=== PATIENT | female | born 1990 | race Caucasian/White ===

== ENCOUNTER 2019-12-02 18:18 | Emergency (ER) | payer MEDICARE, SELFPAY ==
[2019-12-02 18:35] VITALS: BP 120/88; PULSE 72; RESP 21; TEMP 36.9; O2SAT 98; BMI 28.7
--- NOTE | 2019-12-02 18:39 | ECG_ITS ---
APPROVED REPORT Exam: Resting ECG HR:78 bpm ECG Measurements Heart Rate 78 AXES AK 154 P 52 QRSd 92 QRS 29 QT 374 T 58 QTc 426 <Conclusion> Sinus rhythm with premature atrial complexes Otherwise normal ECG Electronically signed by : Henry Clark, 12/04/2019 16:33:48
[2019-12-02 18:40] VITALS: BP 154/109; PULSE 103; RESP 16; TEMP 36.6; O2SAT 98; BMI 28.7
[2019-12-02 18:43] VITALS: BP 120/88; BP 135/90; PULSE 72; PULSE 92
--- NOTE | 2019-12-02 18:47 | XR_ITS ---
PROCEDURE: XR CHEST PORTABLE CLINICAL HISTORY: syncope COMPARISON: No exams were available for comparison FINDINGS: The cardiomediastinal silhouette and pulmonary vascularity are within normal limits. The lungs are clear without infiltrates, suspicious nodules, or pleural effusions. No acute bony abnormalities. IMPRESSION: No acute findings. Dictated by: Andre Gregory MD 12/02/2019 20:11 Electronically signed by Andre Gregory MD in [place] 12/02/2019 20:11
--- NOTE | 2019-12-02 18:48 | CT_ITS ---
PROCEDURE: CT HEAD/BRAIN WO CON CLINICAL INDICATION: syncope Syncope, head injury with pain and swelling over the left temporal region COMPARISON: No exams were available for comparison TECHNIQUE: Axial images obtained. All CT scans at the facility use one or more dose reduction, viz: automated exposure control, ma/kV adjustment per patient size (including targeted exams where dose is matched to indication, i.e. head), or iterative reconstruction technique. FINDINGS: No midline shift, mass effect, intracranial hemorrhage, hydrocephalus, or extra-axial fluid collection is evident. The calvarium has an unremarkable appearance. No mastoid effusion. No sinus air-fluid level. There is some mild soft tissue swelling in the left frontal temporal area. IMPRESSION: No acute intracranial finding Dictated by: Andre Gregory MD 12/03/2019 06:22 Electronically signed by Andre Gregory MD in [place] 12/03/2019 06:22
[2019-12-02 19:09] LABS: Basophils # 0.1 K/mm3 (0-0.2); Basophils % 0.8 % (0.1-2.0); Eosinophils # 0.2 K/mm3 (0.0-0.4); Eosinophils % 3.1 % (0.1-12.0); Hematocrit 41.8 % (37.0-47.0); Hemoglobin 13.8 g/dL (12.2-16.2); Lymphocytes # 3.2 K/mm3 (0.7-4.5); Lymphocytes % 48.7 % (10-50); Mean Corpuscular HGB Conc 33.1 g/dL (31.8-35.4); Mean Corpuscular Hemoglobin 30.3 pg (27.0-31.2); Mean Corpuscular Volume 91.5 fl (81-99); Mean Platelet Volume 8.9 fl (7.4-10.4); Monocytes # 0.3 K/mm3 (0.1-1.0); Monocytes % 4.3 % (1.7-9.3); Neutrophils # 2.8 K/mm3 (1.8-7.8); Neutrophils % 43.2 % (37.0-80.0); Platelet Count 247 K/mm3 (142-424); Red Blood Count 4.57 M/mm3 (4.20-5.40); Red Cell Distribution Width 12.2 % (11.5-17.5); White Blood Count 6.5 K/mm3 (4.8-10.8)
[2019-12-02 19:19] LABS: Chloride 103 mmol/L (98-107); HCG Qualitative, Serum Negative (Negative); Potassium 3.5 mmoL/L (3.5-5.1); Sodium 138 mmol/L (136-145)
[2019-12-02 19:20] LABS: Alanine Aminotransferase 40 U/L (12-78); Albumin Level 4.1 g/dl (3.5-5.0); Alkaline Phosphatase 68 U/L (38-126); Aspartate Amino Transferase 42 U/L (14-36); Bilirubin,Indirect 0.4 mg/dL (0.0-0.9); Bilirubin,Total 0.4 mg/dl (0.2-1.3); Bilirubin,Unconjugated 0.4 mg/dL (0.0-1.1); Total Protein,Serum 7.1 g/dl (6.3-8.2)
[2019-12-02 19:22] LABS: Anion Gap 11.5 mEq/L (5-15); Blood Urea Nitrogen 16 mg/dl (7-17); Carbon Dioxide 27 mmol/L (22.0-30.0); Creatinine Clearance Estimated 140 mL/min (50-200); Estimated Glomerular Filt Rate 85 ml/min (>60); GFR (African American) 103 ML/MIN (>60)
[2019-12-02 19:23] LABS: Glucose 82 mg/dl (74-100)
[2019-12-02 19:39] LABS: Troponin I < 0.01 ng/ml (0.00-0.034)
--- NOTE | 2019-12-02 20:10 | HMH.EDSYNC ---
ED Disposition Clinical Impression: Vasovagal syncope, Laceration Disposition: Home, Self-Care Condition on Discharge: Good Instructions: DI for Syncope in Adults (Fainting), DI for Syncope in Children (Fainting) Additional Instructions: Have sutures removed 11 to 14 days from now. Please return to the ED to have them removed. If any redness or notice any swelling in the area please return to the emergency department for probable antibiotics for secondary infection. Referrals: Kunal Amaro MD [Primary Care Provider] - - Critical Care Critical Care Time: No Attestation: On 12/02/19, the high probability of a clinically significant, sudden or life threatening deterioration of the following system(s) required my full and direct attention, intervention and personal management. The time I documented below is in addition to time spent performing reported procedures but includes the following listed in this critical care notation. Medical Decision Making - Medical Records Medical records reviewed: Yes: I reviewed the patient's medical records. - Cristopher Inquiry Pt receiving controlled substance: No Vital Signs: 12/02/19 18:35 12/02/19 18:40 12/02/19 18:43 Temperature 98.4 F 98 F Temperature Source Oral Oral Pulse Rate [Left Brachial] 72 Pulse Rate [Left Radial] 103 H Pulse Rate [Orthostatic Sitting Left Brachial] 72 Pulse Rate [Orthostatic Standing Left Brachial] 92 H Respiratory Rate 21 16 Blood Pressure [Left Arm] 120/88 Blood Pressure [Orthostatic Sitting Left Arm] 120/88 Blood Pressure [Orthostatic Standing Left Arm] 135/90 Blood Pressure [Right Arm] 154/109 H Blood Pressure Mean [Left Arm] 98 Blood Pressure Mean [Right Arm] 124 Blood Pressure Source [Left Arm] Automatic Cuff Blood Pressure Position [Left Arm] Sitting Blood Pressure Position [Right Arm] Sitting 02 Sat by Pulse Oximetry 98 98 Oxygen Delivery Method Room Air Room Air - Lab Data Lab results reviewed: Yes: I reviewed the patient's lab results. Lab Results 12/02/19 18:50: WBC 6.5, RBC 4.57, Hgb 13.8, Hct 41.8, MCV 91.5, MCH 30.3, MCHC 33.1, RDW 12.2, Plt Count 247, MPV 8.9, Neut % (Auto) 43.2, Lymph % (Auto) 48.7, [place] % (Auto) 4.3, Eos % (Auto) 3.1, Baso % (Auto) 0.8, Neut # (Auto) 2.8, Lymph # (Auto) 3.2, [place] # (Auto) 0.3, Eos # (Auto) 0.2, Baso # (Auto) 0.1 12/02/19 18:50: Sodium 138, Potassium 3.5, Chloride 103, Carbon Dioxide 27, Anion Gap 11.5, BUN 16, Creatinine 0.80, Estimated Creat Clear 140, Estimated GFR 85, Est GFR ( Amer) 103, Glucose 82, Calcium 9.0, Troponin I < 0.01 12/02/19 18:50: Total Bilirubin 0.4, Direct Bilirubin 0.0, Conjugated Bilirubin 0.0, Indirect Bilirubin 0.4, Unconjugated Bilirubin 0.4, AST 42 H, ALT 40, Alkaline Phosphatase 68, Total Protein 7.1, Albumin 4.1 12/02/19 18:50: Serum HCG, Qual Negative Result diagrams: 12/02/19 18:50 12/02/19 18:50 Orders (Tests/Meds): ED MEDICATIONS Discontinued Medications Generic Name Dose Route Start Last Admin Trade Name Freq PRN Reason Stop Dose Admin Lidocaine/Epinephrine 5 ml 12/02/19 18:49 12/02/19 18:59 Lidocaine 2% W/Epi 1:100,000 20ml Vial IJ 12/02/19 18:50 5 cc ONCE ONE Administration Tetanus/Reduced Diphtheria/Acell Pertussis 0.5 ml 12/02/19 18:49 12/02/19 18:58 Adacel Tdap 0.5ml Syringe IM 12/02/19 18:50 0.5 ml .ONCE ONE Administration ORDERS Category Date Time Status CT head/brain wo con Stat Cat Scan 12/02/19 18:48 Taken XR chest portable Stat Exams 12/02/19 18:47 Taken Troponin I Q3H Lab 12/02/19 22:00 Ordered Troponin I Q3H Lab 12/03/19 01:00 Ordered - CT Data CT Scan: Head Time Received: 20:00 Preliminary Findings: Normal/NAD Syncope HPI - General Chief Complaint: Syncope Stated Complaint: ao 0429 1800 lac to chin Time Seen by Provider: 12/02/19 20:10 Mode of Arrival: Ambulatory Source of Information: Patient Limitations: No Limitations Description of S
[2019-12-02 20:16] VITALS: BP 130/83; PULSE 67; RESP 16; TEMP 36.7; O2SAT 100
== END 2019-12-02 20:23 | disposition home or self-care (01) ==
LOC: UTC 18:24 → ER 18:33
PROVIDERS: Emergency Provider Family Medicine; PCP Family Medicine
DX: R55 Syncope and collapse (principal); S01.81XA Laceration without foreign body of other part of head, initial encounter; W18.39XA Other fall on same level, initial encounter; Y92.019 Unspecified place in single-family (private) house as the place of occurrence of the external cause; K21.9 Gastro-esophageal reflux disease without esophagitis; Z90.09 Acquired absence of other part of head and neck
CPT/HCPCS: 12013; 70450; 71045; 80048; 80076; 84484; 84703; 85025; 90471; 90715; 93005; 99283

== ENCOUNTER → 2020-08-11 15:46 | Outpatient (CLI) | payer MEDICARE, SELFPAY ==
[2020-08-11 16:29] LABS: Basophils % 0.5 % (0.1-2.0); Eosinophils # 0.1 K/mm3 (0.0-0.4); Eosinophils % 1.4 % (0.1-12.0); Hemoglobin 13.7 g/dL (12.2-16.2); Lymphocytes # 1.7 K/mm3 (0.7-4.5); Lymphocytes % 31.4 % (10-50); Mean Corpuscular HGB Conc 31.8 g/dL (31.8-35.4); Mean Corpuscular Hemoglobin 29.4 pg (27.0-31.2); Mean Corpuscular Volume 92.4 fl (81-99); Mean Platelet Volume 8.8 fl (7.4-10.4); Monocytes # 0.3 K/mm3 (0.1-1.0); Neutrophils # 3.3 K/mm3 (1.8-7.8); Neutrophils % 61.7 % (37.0-80.0); Platelet Count 201 K/mm3 (142-424); Red Blood Count 4.66 M/mm3 (4.20-5.40); Red Cell Distribution Width 13.8 % (11.5-17.5); White Blood Count 5.3 K/mm3 (4.8-10.8)
[2020-08-11 16:50] LABS: Strep Scrn Group A (Rapid) Negative (Negative)
== END ==
PROVIDERS: PCP Physician Assistant; Visit Provider Physician Assistant
DX: Z20.828 Contact with and (suspected) exposure to other viral communicable diseases (principal); U07.1 COVID-19
CPT/HCPCS: 85025; 87275; 87276; 87430; U0003

== ENCOUNTER 2021-04-06 16:43 | Emergency (ER) | payer MEDICARE, SELFPAY ==
[2021-04-06 18:16] VITALS: BP 137/70; PULSE 63; RESP 14; TEMP 36.8; O2SAT 100; BMI 33.0
[2021-04-06 18:26] VITALS: BP 137/70; PULSE 63; RESP 14; TEMP 36.8
--- NOTE | 2021-04-06 18:42 | HMH.EDUTC ---
[facility] Disposition Clinical Impression: Viral syndrome Pharyngitis Qualifiers: Pharyngitis/tonsillitis etiology: unspecified etiology Qualified Code(s): J02.9 - Acute pharyngitis, unspecified Disposition: Home, Self-Care Condition on Discharge: Good Instructions: DI for Viral Syndrome, Preventing the Spread of Coronavirus Discharge Instructions Additional Instructions: Drink plenty of fluids. Take tylenol or ibuprofen for pain or fever. Take the medications as directed. Follow up with your regular doctor. GO TO THE ER FOR ANY WORSENING SYMPTOMS Prescriptions: Brompheniramine/Pseudoephed/Dm [Bromfed Dm Cough Syrup] 5 ml PO Q6HP PRN #240 ml PRN Reason: Cough Transmission Status: Received by [facility] Ondansetron [Zofran 4mg ODT] 4 mg PO Q8HP PRN #12 tab PRN Reason: Nausea Transmission Status: Received by [facility] Azithromycin [Z-David 250mg Tab*] 250 mg PO UD DOSE PK #6 tab Transmission Status: Received by [facility] Referrals: Lexi Ennis PA [Primary Care Provider] - Forms: Work/School Release Time of Disposition: 18:59 Medical Decision Making - Medical Records Medical records reviewed: No: I reviewed the patient's medical records. - Cristopher Inquiry Pt receiving controlled substance: No Vital Signs: 04/06/21 18:16 04/06/21 18:26 Temperature 98.3 F 98.3 F Temperature Source Oral Pulse Rate 63 Pulse Rate [Left] 63 Respiratory Rate 14 14 Blood Pressure 137/70 Blood Pressure [Right Arm] 137/70 Blood Pressure Mean [Right Arm] 92 02 Sat by Pulse Oximetry 100 - Lab Data Lab results reviewed: Yes: I reviewed the patient's lab results. Lab Results 04/06/21 17:47: Chlamy pneumoniae PCR Not detected, Adenovirus (PCR) Not detected, B. pertussis DNA (PCR) Not detected, Coronavirus OC43 (PCR) Not detected, Coronavirus HKU1 (PCR) Not detected, Coronavirus 229E (PCR) Not detected, SARS-CoV-2 (PCR) Not detected, Coronavirus NL63 (PCR) Not detected, Human Metapneumovir PCR Not detected, Influenza A (H1) PCR Not detected, Influ A (H1N1/09) PCR Not detected, Influenza A (H3) PCR Not detected, Influenza Type A (PCR) Not detected, Influenza Type B (PCR) Not detected, M. pneumoniae (PCR) Not detected, Parainfluenza 1 (PCR) Not detected, Parainfluenza 2 (PCR) Not detected, Parainfluenza 3 (PCR) Not detected, Parainfluenza 4 (PCR) Not detected, RSV (PCR) Not detected, Entero/Rhino (PCR) Not detected 04/06/21 18:53: Strep Scn Rapid Clinic Negative Orders (Tests/Meds): ORDERS Category Date Time Status Strep Screen Confirmation Stat Micro 04/06/21 18:53 Received [facility] HPI - General Stated complaint: sore throat,cough,BAEZ,weak,runny nose Time Seen by Provider: 04/06/21 18:42 Mode of Arrival: Ambulatory Source of Information: Patient Limitations: No Limitations Description of Symptoms (Recalled from Triage Doc. by RN): pt c/o BAEZ, ears ache, sore throat, nasal drainage, and body aches. pt was covid NEG. as of . HEENT Symptoms (Recalled from RN notes): Yes (BAEZ, ears ache, nasal drainage and sore throat) Resp Symptoms (Recalled from RN notes): No Skin Symptoms (Recalled from RN notes): No MS Symptoms (Recalled from RN notes): No Functional Status (Recalled from RN notes): body aches - History of Present Illness Provider Complaint: She reports that she has felt bad for the past 4 days. She had a negative covid test yesterday. She has had a sore troat, sinus congestion her gi upset also. - Related Data Home Medications Medication Instructions Recorded Confirmed Fluoxetine HCl 10 mg PO DAILY 12/02/19 12/02/19 Omeprazole [Omeprazole 20mg 20 mg PO DAILY 12/02/19 12/02/19 Capsule] Previous Rx's Medication Instructions Recorded Azithromycin [Z-David 250mg Tab*] 250 mg PO UD DOSE PK #6 tab 04/06/21 Brompheniramine/Pseudoephed/Dm 5 ml PO Q6HP PRN #240 ml 04/06/21 [Bromfed Dm Cough Syrup] Ondansetron [Zofran 4mg ODT] 4 mg
[2021-04-06 18:54] LABS: UTC Strep Screen (Rapid) Negative (Negative)
[2021-04-06 18:57] LABS: Adenovirus,PCR Not Detected (NotDetected); Bordetella Pertussis Not Detected (NotDetected); Chlamydophila Pneumoniae, PCR Not Detected (NotDetected); Coronavirus 19, PCR Not Detected (NotDetected); Coronavirus 229E Not Detected (NotDetected); Coronavirus NL63 Not Detected (NotDetected); Coronavirus OC43 Not Detected (NotDetected); Coronovirus HKU1,PCR Not Detected (NotDetected); Human Metapneumovirus Not Detected (NotDetected); Influenza A, PCR Not Detected (NotDetected); Influenza AH1, 2009 Not Detected (NotDetected); Influenza AH1, PCR Not Detected (NotDetected); Influenza AH3,PCR Not Detected (NotDetected); Influenza B, PCR Not Detected (NotDetected); Mycoplasma Pneumoniae, PCR Not Detected (NotDetected); Parainfluenza 1, PCR Not Detected (NotDetected); Parainfluenza 2, PCR Not Detected (NotDetected); Parainfluenza 3, PCR Not Detected (NotDetected); Parainfluenza 4, PCR Not Detected (NotDetected); Respiratory Syncytial Virus Not Detected (NotDetected); Rhinovirus/Enterovirus Not Detected (NotDetected)
== END 2021-04-06 19:12 | disposition home or self-care (01) ==
PROVIDERS: Emergency Provider Nurse Practitioner Family; PCP Physician Assistant
DX: B34.9 Viral infection, unspecified (principal); J02.9 Acute pharyngitis, unspecified; F33.1 Major depressive disorder, recurrent, moderate; Z20.822 Contact with and (suspected) exposure to COVID-19
CPT/HCPCS: G0463; 87581; 87633; 87798; 87880; 99203

== ENCOUNTER → 2021-08-29 16:23 | Outpatient (CLI) | payer MEDICARE, SELFPAY | PROVIDERS: PCP Family Medicine; Visit Provider Nurse Practitioner | DX: U07.1 COVID-19 (principal) | CPT/HCPCS: C9803; U0003; U0005 ==

== ENCOUNTER → 2021-09-18 14:44 | Outpatient (CLI) | payer MEDICARE, SELFPAY | PROVIDERS: PCP Family Medicine; Visit Provider Family Medicine | DX: E55.9 Vitamin D deficiency, unspecified (principal); F41.8 Other specified anxiety disorders; E28.2 Polycystic ovarian syndrome; R53.83 Other fatigue; Z90.710 Acquired absence of both cervix and uterus ==

== ENCOUNTER → 2021-09-25 12:05 | Outpatient (CLI) | payer MEDICARE, SELFPAY ==
[2021-09-25 13:11] LABS: Basophils % 0.5 % (0.1-2.0); Eosinophils # 0.1 K/mm3 (0.0-0.4); Eosinophils % 1.2 % (0.1-12.0); Hematocrit 41.9 % (37.0-47.0); Hemoglobin 13.9 g/dL (12.2-16.2); Lymphocytes # 1.4 K/mm3 (0.7-4.5); Lymphocytes % 14.8 % (10-50); Mean Corpuscular HGB Conc 33.1 g/dL (31.8-35.4); Mean Corpuscular Volume 90.5 fl (81-99); Mean Platelet Volume 8.9 fl (7.4-10.4); Monocytes # 0.4 K/mm3 (0.1-1.0); Monocytes % 4.1 % (1.7-9.3); Neutrophils # 7.6 K/mm3 (1.8-7.8); Neutrophils % 79.4 % (37.0-80.0); Platelet Count 232 K/mm3 (142-424); Red Blood Count 4.63 M/mm3 (4.20-5.40); Red Cell Distribution Width 12.6 % (11.5-17.5); White Blood Count 9.5 K/mm3 (4.8-10.8)
[2021-09-25 13:25] LABS: Hemoglobin A1C 4.9 % (4.0-6.0)
[2021-09-25 13:52] LABS: Alanine Aminotransferase 20 U/L (12-78); Albumin Level 3.8 g/dl (3.5-5.0); Albumin/Globulin Ratio 1.5 (1.1-1.8); Alkaline Phosphatase 67 U/L (38-126); Anion Gap 9.8 mEq/L (5-15); Aspartate Amino Transferase 24 U/L (14-36); Bilirubin,Total 0.4 mg/dl (0.2-1.3); Blood Urea Nitrogen 11 mg/dl (7-17); Calcium 8.7 mg/dl (8.4-10.2); Carbon Dioxide 29 mmol/L (22.0-30.0); Chloride 105 mmol/L (98-107); Cholesterol 201 mg/dl (140-200); Estimated Glomerular Filt Rate 98 ml/min (>60); GFR (African American) 118 ML/MIN (>60); Globulin 2.5 g/dL (1.3-3.2); Glucose 84 mg/dl (74-100); HDL Cholesterol 67 mg/dl (40-60); Iron 70 ug/dL (37-170); Potassium 4.8 mmoL/L (3.5-5.1); Sodium 139 mmol/L (136-145); Total Protein,Serum 6.3 g/dl (6.3-8.2); Triglycerides 94 mg/dl (30-150); VLDL Cholesterol 19 mg/dL (0-40)
[2021-09-25 14:04] LABS: Direct LDL Cholesterol 109.59 mg/dL (100-129)
[2021-09-25 14:10] LABS: 25-OH Vitamin D, Total 81.6 ng/mL (30-100)
[2021-09-25 14:23] LABS: Thyroid Stimulating Hormone 0.41 uIU/mL (0.465-4.68)
[2021-09-25 14:43] LABS: Vitamin B12 > 1000 pg/mL (239-931)
[2021-09-26 10:12] LABS: FSH 5.4 mIU/mL (.); LH 5.3 mIU/mL (.)
== END ==
PROVIDERS: Visit Provider Family Medicine
DX: F41.8 Other specified anxiety disorders (principal); E28.2 Polycystic ovarian syndrome; E55.9 Vitamin D deficiency, unspecified; R53.83 Other fatigue; Z90.710 Acquired absence of both cervix and uterus
CPT/HCPCS: 36415; 80053; 80061; 82306; 82607; 83001; 83002; 83036; 83540; 84443; 85025

== ENCOUNTER 2022-03-15 17:00 | Emergency (ER) | payer MEDICARE, BC, SELFPAY ==
[2022-03-15 17:40] VITALS: BP 136/80; PULSE 73; RESP 18; TEMP 37.5; O2SAT 97; BMI 34.2
--- NOTE | 2022-03-15 18:04 | HMH.EDUTC ---
[facility] [place] Clinical Impression: Otitis media Qualifiers: Otitis media type: unspecified Laterality: left Qualified Code(s): H66.92 - Otitis media, unspecified, left ear Eustachian tube dysfunction Qualifiers: Laterality: unspecified laterality Qualified Code(s): H69.80 - Other specified disorders of Eustachian tube, unspecified ear Disposition: Home, Self-Care Condition on Discharge: Good Instructions: Middle Ear Infection, DI for Eustachian Tube Dysfunction-Adult Additional Instructions: Take medication as prescribed Over the counter Sudafed can be got from the pharmacy take as according to directions Return if needed Straight to ER if any life threatening symptoms Follow up with your Family Doctor if no improvement Prescriptions: Cefdinir [Omnicef 300mg Capsule] 300 mg PO BID #20 cap Transmission Status: Received by [facility] Pseudoephedrine HCl [Sudafed 12 Hour 120mg Tab] 1 tab PO BID PRN #20 tab PRN Reason: Congestion Transmission Status: Received by [facility] Referrals: Gabriel Medrano MD [Primary Care Provider] - As needed Time of Disposition: 18:19 Medical Decision Making - Cristopher Inquiry Pt receiving controlled substance: No Cristopher was queried for this patient: No Vital Signs: 03/15/22 17:40 03/15/22 18:20 Temperature 99.5 F 99.5 F Temperature Source Oral Pulse Rate 73 Pulse Rate [Left Brachial] 73 Respiratory Rate 18 18 Blood Pressure 136/80 Blood Pressure [Left Arm] 136/80 Blood Pressure Mean [Left Arm] 98 Blood Pressure Source [Left Arm] Automatic Cuff Blood Pressure Position [Left Arm] Sitting 02 Sat by Pulse Oximetry 97 Oxygen Delivery Method Room Air Orders (Tests/Meds): ED MEDICATIONS Discontinued Medications Generic Name Dose Route Start Last Admin Trade Name Freq PRN Reason Stop Dose Admin Methylprednisolone Sodium Succinate 125 mg 03/15/22 18:07 03/15/22 18:20 Methylprednisolone Sod Succ 125mg Vial IM 03/15/22 18:08 125 mg ONCE ONE Administration [facility] [place] HPI - General Stated complaint: fluid in ears Time Seen by Provider: 03/15/22 18:04 Mode of Arrival: Ambulatory Source of Information: Patient Limitations: No Limitations Description of Symptoms (Recalled from Triage Doc. by RN): PATIENT C/O BILATERAL EAR PAIN AND DRAINAGE X 3 WEEKS. SHE ALSO REPORTS SHE HAS BEEN OFF-BALANCE AND MUFFLED HEARING HEENT Symptoms (Recalled from RN notes): Yes Resp Symptoms (Recalled from RN notes): No Skin Symptoms (Recalled from RN notes): No MS Symptoms (Recalled from RN notes): No Functional Status (Recalled from RN notes): WNL - History of Present Illness Provider Complaint: Patient states that she has been having pain and pressure like feeling in her ears States that they have felt full like they area full of fluid and makes her feel off balance and pain is worse today - Related Data Home Medications Medication Instructions Recorded Confirmed Omeprazole [Omeprazole 20mg 20 mg PO DAILY 12/02/19 07/06/21 Capsule] buspirone 5 mg tablet 5 mg PO tab 06/25/21 07/06/21 sertraline 50 mg tablet 50 mg PO tab 06/25/21 07/06/21 temazepam 15 mg capsule 15 mg PO cap 06/25/21 07/06/21 Previous Rx's Medication Instructions Recorded Cefdinir [Omnicef 300mg Capsule] 300 mg PO BID #20 cap 03/15/22 Pseudoephedrine HCl [Sudafed 12 1 tab PO BID PRN #20 tab 03/15/22 Hour 120mg Tab] Allergies Allergy/AdvReac Type Severity Reaction Status Date / Time clavulanic acid Allergy Unknown Verified 07/06/21 18:07 [From Augmentin] morphine [MORPHINE] Allergy Unknown Verified 07/06/21 18:07 - Worker's Comp Is this a Worker's Comp case?: No [facility] History - Hepatitis A Screen Attestation statement:: This patient has been screened for Hepatitis A risk factors. I have reviewed the patient's past medical history: Yes Medical History: Reports:: Anxiety, Depression, Gastroesophageal Reflux Disease(GERD) [place]
[2022-03-15 18:20] VITALS: BP 136/80; PULSE 73; RESP 18; TEMP 37.5; O2SAT 97
== END 2022-03-15 18:35 | disposition home or self-care (01) ==
PROVIDERS: Emergency Provider Nurse Practitioner; PCP Family Medicine
DX: H66.92 Otitis media, unspecified, left ear (principal); H69.80 Other specified disorders of Eustachian tube, unspecified ear
CPT/HCPCS: 96372; 99212; G0463

== ENCOUNTER 2022-03-31 10:12 | Emergency (ER) | payer MEDICARE, BC, SELFPAY ==
[2022-03-31 10:13] VITALS: BP 142/95; PULSE 92; RESP 16; TEMP 36.8; O2SAT 98; BMI 33.2
--- NOTE | 2022-03-31 10:24 | XR_ITS ---
PROCEDURE INFORMATION: Exam: XR Sacrum and Coccyx, 2 or More Views Exam date and time: 03/31/2022 10:58 AM Age: 31 years old Clinical indication: Injury or trauma; Fall; Blunt trauma (contusions or hematomas); Additional info: Trauma/pain TECHNIQUE: Imaging protocol: XR of the sacrum and coccyx, 2 or more views. COMPARISON: ABDPELW CT ABD PELVIS W/ CONTRAST 04/18/2017 8:23 PM FINDINGS: Bones/joints: Subtle cortical regularity involving the distal sacrum just proximal to the sacrococcygeal junction. Findings suspicious but not definitive for possible fracture. Soft tissues: Normal. IMPRESSION: 1. Subtle cortical regularity involving the distal sacrum in the region of the sacrococcygeal junction. Findings suspicious but not definitive for possible fracture. 2. Consider follow-up if appropriate with magnetic resonance imaging or computerized tomography.
--- NOTE | 2022-03-31 10:24 | XR_ITS ---
PROCEDURE INFORMATION: Exam: XR Left Shoulder Exam date and time: 03/31/2022 10:53 AM Age: 31 years old Clinical indication: Injury or trauma; Fall; Blunt trauma (contusions or hematomas); Shoulder; Left; Additional info: Trauma/pain TECHNIQUE: Imaging protocol: Radiologic exam of the Left shoulder. Views: 2 or more views. COMPARISON: CR XR RIBS LT MIN 3V W CXR1V 03/31/2022 10:50 AM FINDINGS: Bones/joints: Normal. Soft tissues: Normal. IMPRESSION: No acute findings.
--- NOTE | 2022-03-31 10:24 | XR_ITS ---
PROCEDURE INFORMATION: Exam: XR Left Ribs with PA Chest Exam date and time: 03/31/2022 10:50 AM Age: 31 years old Clinical indication: Injury or trauma; Fall; Rib area, left side; Blunt trauma; Additional info: Trauma/pain TECHNIQUE: Imaging protocol: Radiologic exam of the Left ribs with PA chest. Views: 3 views COMPARISON: CR XR CHEST PORTABLE 12/02/2019 7:28 PM FINDINGS: Lungs: Unremarkable. No consolidation. Pleural spaces: Unremarkable. No pleural effusion. No pneumothorax. Heart/Mediastinum: Unremarkable. No cardiomegaly. Bones/joints: Unremarkable. IMPRESSION: No acute findings.
--- NOTE | 2022-03-31 10:25 | HMH.EDGENADL ---
Discharge Plan Disposition Patient Disposition: Home, Self-Care Chief Complaint: PAIN Prescriptions Prescriptions: New hydrocodone-acetaminophen 7.5-325 mg tablet 1 tab PO TID PRN (Reason: pain) Qty: 12 0RF No Action buspirone 5 mg tablet 5 mg PO temazepam 15 mg capsule 15 mg PO sertraline 50 mg tablet 50 mg PO omeprazole 20 MG capsule,delayed release(DR/EC) 20 mg PO DAILY pseudoephedrine HCl 120 MG tablet extended release 1 tab PO BID PRN (Reason: Congestion) Qty: 20 0RF cefdinir 300 MG capsule 300 mg PO BID Qty: 20 0RF Referrals Follow up/Referrals: Lexi Ennis PA [Primary Care Provider] - See instructions Activity Restrictions/Add. Instructions Additional Instructions/Restrictions: follow up PCP as needed Clinical Impressions Clinical Impression: Fracture, sacrum/coccyx Instructions Patient Instructions: DI for Coccyx Fracture Discharge ED Provider: Levi Waldron General Adult HPI General Chief complaint: PAIN Stated complaint: ao 03/31 fall, upper back and left shoulder pain Time Seen by Provider: 03/31/22 10:29 Mode of Arrival: Ambulatory Source of Information: Patient Limitations: No Limitations Description of Symptoms (Recalled from ER Triage Doc. by RN): to ed per pvt car pt states slipped on wet grass fell landing on buttocks and caught self with lt arm c/o coccyx pain, lt scapula, and lt shoulder pain. 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 Onset (ago): minute(s) Location: back Severity: moderate Quality: aching Consistency: constant Relieving factors: immobilization Exacerbating factors: movement Associated symptoms: denies other symptoms Treatments prior to arrival: none Related Data Home Medications Medication Instructions Recorded Confirmed omeprazole 20 mg capsule,delayed 20 mg PO DAILY GERD 12/02/19 07/06/21 release buspirone 5 mg tablet 5 mg PO 06/25/21 07/06/21 sertraline 50 mg tablet 50 mg PO 06/25/21 07/06/21 temazepam 15 mg capsule 15 mg PO 06/25/21 07/06/21 Previous Rx's Medication Instructions Recorded cefdinir 300 mg capsule 300 mg PO BID #20 caps 03/15/22 pseudoephedrine HCl 120 mg 1 tab PO BID PRN Congestion #20 08/11/22 tablet,extended release tabs hydrocodone 7.5 mg-acetaminophen 1 tab PO TID PRN pain #12 tabs 03/31/22 325 mg tablet Allergies Allergy/AdvReac Type Severity Reaction Status Date / Time clavulanic acid Allergy Unknown Verified 07/06/21 18:07 [From Augmentin] morphine [MORPHINE] Allergy Unknown Verified 07/06/21 18:07 PFSH PFS Social History Smoking Status: Never smoker alcohol intake: never substance use type: denies use current occupational status: other household members: family housing: house ROS Obtained: Yes All systems reviewed & no additional complaints except as documented Physical Exam General General appearance: alert and in no apparent distress Head Head exam: atraumatic and normocephalic Eye Eye exam: Present normal appearance, PERRL and EOMI Chest Chest inspection: Present normal inspection and symmetric chest wall rise; Absent tenderness Respiratory Respiratory exam: Present normal lung sounds bilaterally; Absent respiratory distress or wheezes Cardiovascular Cardiovascular exam: Present regular rate and normal rhythm; Absent tachycardia Abdominal Exam Abdominal exam: Present soft; Absent distention, tenderness or guarding Extremities Exam Extremities exam: Present other (left anterior sholder ttp, otherwise nml ) Back Exam Back exam: Present other (ttp sacrum and left lateral ribs, c/t/l non tender) Neurological Exam Neurological exam: Present alert, oriented X3, CN II-XII intact and normal gait Psychiatric Psychiatric exam: Present normal affect and normal mood Skin Skin exam: Present warm, intact
[2022-03-31 11:16] VITALS: BP 118/67; PULSE 78; RESP 17; O2SAT 98
[2022-03-31 12:08] VITALS: BP 135/74; PULSE 74; RESP 16; TEMP 37; O2SAT 98
== END 2022-03-31 12:09 | disposition home or self-care (01) ==
PROVIDERS: Emergency Provider Emergency Medicine; PCP Physician Assistant
DX: S32.10XA Unspecified fracture of sacrum, initial encounter for closed fracture (principal); W01.0XXA Fall on same level from slipping, tripping and stumbling without subsequent striking against object, initial encounter; Y92.096 Garden or yard of other non-institutional residence as the place of occurrence of the external cause; Z79.899 Other long term (current) drug therapy; Z88.1 Allergy status to other antibiotic agents; Z88.5 Allergy status to narcotic agent
CPT/HCPCS: 71101; 72220; 73030; 96372; 99284

== ENCOUNTER → 2022-04-27 13:54 | Outpatient (CLI) | payer MEDICARE, BC, SELFPAY ==
--- NOTE | 2022-04-27 14:09 | XR_ITS ---
FINAL REPORT CLINICAL HISTORY: MID BACK PAIN..fall 2 weeks ago FINDINGS: THORACIC SPINE Three views were obtained. There is no acute fracture. There is no malalignment. There is thoracic scoliosis convex to the left at about 11 degrees. The disc spaces are preserved. There is no soft tissue abnormality. IMPRESSION: No acute bony abnormality. Reviewed, Interpreted and Dictated by Salo Hutton MD Transcribed by Marleen Tamez Authenticated and [facility]
== END ==
LOC: RAD 14:01
PROVIDERS: PCP Physician Assistant; Visit Provider Physician Assistant
DX: M54.6 Pain in thoracic spine (principal)
CPT/HCPCS: 72072

== ENCOUNTER → 2022-05-11 11:06 | Outpatient (CLI) | payer BC, MEDICARE, SELFPAY ==
--- NOTE | 2022-05-11 11:20 | MR_ITS ---
FINAL REPORT CLINICAL HISTORY: MID BACK PAIN FALL Mar PAIN ON LEFT SIDED MID BACK BURNING, TINGLING,NUMBNESS DOWN LEFT ARM FINDINGS: Multiplanar MR imaging of the thoracic spine was performed without contrast. On the sagittal T2-weighted images, mild disc degeneration is seen at several levels. There is a subacute mild compression fracture of T7. There is 30% loss of height anteriorly. The vertebral alignment is normal. The thoracic spinal cord has an unremarkable appearance without evidence of mass, edema or syrinx. There is no evidence of significant canal stenosis or cord compression. On the axial images, no focal soft disc protrusion is identified. There is no evidence of significant canal stenosis or cord compression. No paraspinous soft tissue abnormality is identified. IMPRESSION: Subacute mild compression fracture of T7. Reviewed, Interpreted and Dictated by Souleymane Sánchez III, MD Transcribed by Chad Gregg Authenticated and [facility]
== END ==
PROVIDERS: PCP Physician Assistant; Visit Provider Physician Assistant
DX: M54.6 Pain in thoracic spine (principal)
CPT/HCPCS: 72146

== ENCOUNTER → 2022-06-15 08:50 | Outpatient (CLI) | payer BC, MEDICARE, SELFPAY ==
--- NOTE | 2022-06-15 09:01 | XR_ITS ---
FINAL REPORT TECHNIQUE: Bone densitometry calculations of the lumbar spine and left hip were obtained. CLINICAL HISTORY: . closed wedge fx T7 FINDINGS: Using L1-4, the bone mineral density of the spine is 0.916 g/cm2, corresponding to T-score of -1.2. Using the left hip, the bone mineral density of the femoral neck is the 0.955 g/cm2, corresponding to a T-score of the 0.1. Using the right hip, the bone mineral density of the femoral neck is 1.002 g/cm2, corresponding to a T-score of 0.5. NOTE: T-score: Standard deviation compared with peak bone mass of young adult mean. *Following the recommendations of the International Society of Bone densitometry, classification of hip BMD is based on the lower of two T-scores; total hip or femoral neck. IMPRESSION: Normal bone mineral density of the right and left hips. Diminished bone mineral density of the spine consistent with osteopenia. FRAX data reveals major osteoporotic fracture of 3.9% and hip fracture of less than 0.1%. Reviewed, Interpreted and Dictated by Salo Hutton MD Transcribed by Roxanne Daly Authenticated and [facility]
== END ==
PROVIDERS: PCP Physician Assistant; Visit Provider Neurological Surgery
DX: S22.060A Wedge compression fracture of T7-T8 vertebra, initial encounter for closed fracture (principal)
CPT/HCPCS: 77080

== ENCOUNTER 2022-07-17 18:34 | Emergency (ER) | payer BC, MEDICARE, SELFPAY ==
[2022-07-17 20:03] VITALS: BP 146/83; PULSE 77; RESP 16; TEMP 36.4; O2SAT 99; BMI 33.2
[2022-07-17 20:11] LABS: UTC Strep Screen (Rapid) Negative (Negative)
--- NOTE | 2022-07-17 20:18 | EXP.UTC ---
Discharge Plan Disposition Patient Disposition: Home, Self-Care Condition: Good Prescriptions Prescriptions: New azithromycin [azithromycin] 250 mg tablet 250 mg PO DIRECTED Qty: 4 0RF Rx Instructions: one (1) tablet day #2 thru #5 first dose given in [facility] No Action temazepam 15 mg capsule 15 mg PO vilazodone [Viibryd] 20 mg tablet 20 mg PO DAILY 30 Days Qty: 30 1RF doxepin 50 mg capsule See Rx Instructions PO QHS Qty: 60 1RF Rx Instructions: take 1-2 at bedtime orally every day at bedtime; omeprazole 20 MG capsule,delayed release(DR/EC) 20 mg PO DAILY Referrals Follow up/Referrals: Lexi Ennis PA [Primary Care Provider] - See instructions Activity Restrictions/Add. Instructions Additional Instructions/Restrictions: Start antibiotics today be sure to take it as ordered with the full length of time although you should start feeling better in 24-48 hours. Change toothbrush and toothpaste 24-48 hours after starting antibiotics Tylenol or Motrin as needed for fever or pain Encourage fluids, water, Gatorade, Powerade, try cold fluids, popsicles, ice cream will make it feel better You are contagious for 24 hours. Avoid kissing anyone, no eating or drinking after anyone. You are contagious. Follow-up the ER for new or worsening symptoms or no noticeable improvement over the next 24-48 hours. Follow-up with PCP this week. Clinical Impressions Clinical Impression: Strep sore throat Instructions Patient Instructions: DI for Strep Throat Discharge ED Provider: Donato Mckinnon [facility] [place] HPI General Stated complaint: Sore throat,Cough Mode of Arrival: Ambulatory Source of Information: Patient Limitations: No Limitations Time Seen by Provider: 07/17/22 20:18 Description of Symptoms (Recalled from Triage Doc. by RN): pt comes in with c/o sore throat, headache. symptoms have gotten worse thru out day HEENT Symptoms (Recalled from RN notes): Yes Resp Symptoms (Recalled from RN notes): No Skin Symptoms (Recalled from RN notes): No MS Symptoms (Recalled from RN notes): No Functional Status (Recalled from RN notes): n/a History of Present Illness Provider Complaint: 31 yr old female presnets c/o sore throat, headache. symptoms have gotten worse thru out day son has strep Related Data Home Medications Medication Instructions Recorded Confirmed omeprazole 20 mg capsule,delayed 20 mg PO DAILY GERD 12/02/19 07/13/22 release temazepam 15 mg capsule 15 mg PO 06/25/21 07/13/22 Previous Rx's Medication Instructions Recorded doxepin 50 mg capsule See Rx Instructions PO QHS #60 caps 07/13/22 vilazodone 20 mg tablet (Viibryd) 20 mg PO DAILY 30 days #30 tabs 07/13/22 azithromycin 250 mg tablet 250 mg PO DIRECTED #4 tabs 07/17/22 Allergies Allergy/AdvReac Type Severity Reaction Status Date / Time clavulanic acid Allergy Unknown Verified 07/17/22 20:10 [From Augmentin] morphine [MORPHINE] Allergy Unknown Verified 07/17/22 20:10 Worker's Comp Is this a Worker's Comp case?: No [facility] Disclaimer: The information contained in this section may have been updated after the patient was seen, as this information can be updated by other users. 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
[2022-07-17 20:31] VITALS: BP 146/83; PULSE 77; RESP 16; TEMP 36.4
== END 2022-07-17 20:31 | disposition home or self-care (01) ==
PROVIDERS: Emergency Provider Nurse Practitioner Family; PCP Physician Assistant
DX: J02.0 Streptococcal pharyngitis (principal)
CPT/HCPCS: 87275; 87276; 87880; 99212; G0463

== ENCOUNTER 2023-04-06 09:25 | Emergency (ER) | payer BC, MEDICARE, SELFPAY ==
[2023-04-06 09:35] VITALS: BP 126/81; PULSE 101; RESP 19; TEMP 36.6; O2SAT 100; BMI 37.9
--- NOTE | 2023-04-06 09:48 | EXP.UTC ---
Discharge Plan Disposition Patient Disposition: Home, Self-Care Condition: Good Prescriptions Prescriptions: New azithromycin [Zithromax Z-David] 250 mg tablet See Rx Instructions .ROUTE .COMPLEX 5 Days Qty: 6 0RF Rx Instructions: For 250 mg dose pack: take 500 mg today (day 1), then 250 mg for 4 days (days 2-5) benzonatate 100 mg capsule 100 mg PO TID PRN (Reason: cough) Qty: 30 0RF fluticasone propionate [Flonase Allergy Relief] 50 mcg/actuation spray,suspension 1 - 2 spray intranasal DAILY Qty: 16 0RF Rx Instructions: administer into each nostril pseudoephedrine HCl [Sudafed 12 Hour] 120 mg tablet extended release 120 mg PO Q12H PRN (Reason: nasal congestion) Qty: 20 0RF No Action alprazolam [Xanax] 0.5 mg tablet 0.5 mg PO BID PRN (Reason: anxiety) Qty: 30 0RF omeprazole 20 MG capsule,delayed release(DR/EC) 20 mg PO DAILY doxepin 50 mg capsule 50 mg PO QHS Rx Instructions: take 1-2 at bedtime orally every day at bedtime; vilazodone [Viibryd] 40 mg tablet 40 mg PO DAILY Rx Instructions: must administer with a meal/food alendronate 35 mg tablet 35 mg PO DAILY Patient Comments: TAKE ONE TABLET BY MOUTH ONCE A WEEK lamotrigine [Lamictal] 25 mg tablet 25 mg PO DAILY Rx Instructions: take 1 tablet for 2 weeks; take 2 tablets daily PO ; Referrals Follow up/Referrals: Lexi Ennis PA [Primary Care Provider] - See instructions Activity Restrictions/Add. Instructions Additional Instructions/Restrictions: *Monitor Temp, Over the counter Motrin or Tylenol as directed/as needed Tylenol every 4 hours and Motrin every 6 hours (as long as your family doctor has told you that you can take it) for fever or pain. and straight to ER if unable to lower temp less than 101.0 after medication given *Warm salt water gargles may help to soothe the throat *Throat Lozenges? *Warm fluids like tea with honey may help to soothe the throat? *Sleep elevated *Humidifier/Vaporizer *Flonase 2 sprays in each nostril daily but be aware that it may take 2-3 days before you notice improvement Follow up IMMEDIATELY for new or worsening symptoms or no Noticeable improvement over the next 48-72 hours. 911 for difficulty breathing or swallowing Clinical Impressions Clinical Impression: Sinusitis Qualifiers: Sinusitis location: unspecified location Chronicity: unspecified Qualified Code(s): J32.9 - Chronic sinusitis, unspecified Instructions Patient Instructions: Sinusitis, DI for Sinusitis Discharge ED [place] [facility] [place] General Stated complaint: left ear pain, congestion, sore throat, body aches Mode of Arrival: Ambulatory Source of Information: Patient Limitations: No Limitations Time Seen by Provider: 04/06/23 09:48 Description of Symptoms (Recalled from Triage Doc. by RN): PATIENT C/O LEFT EAR PAIN, CHEST CONGESTION AND COUGH X 1.5 WEEKS HEENT Symptoms (Recalled from RN notes): Yes Resp Symptoms (Recalled from RN notes): Yes Skin Symptoms (Recalled from RN notes): No MS Symptoms (Recalled from RN notes): No Functional Status (Recalled from RN notes): WNL History of Present Illness Provider Complaint: Patient states that she has been sick for about a week and half States that she has been having sinus pain and pressure, cough, chest congestion and pain and pressure in her left ear State that last night her ear was hurting worse and kept her up most of the night so today she came Related Data Home Medications Medication Instructions Recorded Confirmed omeprazole 20 mg capsule,delayed 20 mg PO DAILY GERD 12/02/19 04/06/23 release alendronate 35 mg tablet 35 mg PO DAILY . 04/06/23 04/06/23 doxepin 50 mg capsule 50 mg PO QHS . 04/06/23 04/06/23 lamotrigine 25 mg tablet (Lamictal) 25 mg PO DAILY . 04/06/23 04/06/23 vilazodone 40 mg tablet (Viibryd) 40 mg PO DAILY . 04/06/23
[2023-04-06 09:51] VITALS: BP 126/81; PULSE 101; RESP 19; TEMP 36.6; O2SAT 100
== END 2023-04-06 10:11 | disposition home or self-care (01) ==
PROVIDERS: Emergency Provider Nurse Practitioner; PCP Physician Assistant
DX: J01.90 Acute sinusitis, unspecified (principal); H92.02 Otalgia, left ear; G47.00 Insomnia, unspecified; F33.9 Major depressive disorder, recurrent, unspecified; F41.1 Generalized anxiety disorder
CPT/HCPCS: 96372; 99212; 99214; G0463

== ENCOUNTER 2023-06-09 13:14 | Emergency (ER) | payer BC, MEDICARE, SELFPAY ==
--- NOTE | 2023-06-09 13:43 | EXP.UTC ---
Discharge Plan Disposition Patient Disposition: Home, Self-Care Condition: Good Prescriptions Prescriptions: New azithromycin [Zithromax] 250 mg tablet 250 mg PO UD DOSE PK Qty: 6 0RF Rx Instructions: Take two (2) tablets today, then one (1) tablet days #2 thru #5 benzonatate [benzonatate] 100 mg capsule 100 mg PO TIDP PRN (Reason: Cough) Qty: 30 0RF No Action doxepin 50 mg capsule 50 mg PO QHS Qty: 30 1RF Rx Instructions: take 1-2 at bedtime orally every day at bedtime; vilazodone [Viibryd] 40 mg tablet 40 mg PO DAILY Qty: 30 2RF Rx Instructions: must administer with a meal/food lamotrigine [Lamictal] 100 mg tablet 100 mg PO BID Qty: 60 1RF alprazolam [Xanax] 0.5 mg tablet 0.5 mg PO BID PRN (Reason: anxiety) Qty: 30 0RF omeprazole 20 MG capsule,delayed release(DR/EC) 20 mg PO DAILY alendronate 35 mg tablet 35 mg PO DAILY Patient Comments: TAKE ONE TABLET BY MOUTH ONCE A WEEK fluticasone propionate [Flonase Allergy Relief] 50 mcg/actuation spray,suspension 1 - 2 spray intranasal DAILY Qty: 16 0RF Rx Instructions: administer into each nostril pseudoephedrine HCl [Sudafed 12 Hour] 120 mg tablet extended release 120 mg PO Q12H PRN (Reason: nasal congestion) Qty: 20 0RF Referrals Follow up/Referrals: Lexi Ennis PA [Primary Care Provider] - See instructions Activity Restrictions/Add. Instructions Additional Instructions/Restrictions: Drink plenty of fluids. Take tylenol or ibuprofen for pain or fever. Take the medications as directed. Follow up with your regular doctor. GO TO THE ER FOR ANY WORSENING SYMPTOMS Clinical Impressions Clinical Impression: Acute bronchitis, Sinusitis Instructions Patient Instructions: DI for Sinusitis, DI for Acute Bronchitis [place]yn [place] [facility] [place] General Stated complaint: sinus congestion,ear pain, cough Time Seen by Provider: 06/09/23 13:43 Description of Symptoms (Recalled from Triage Doc. by RN): She states that for the past 4 days he has had a productive cough with greenish sputum. She has sinus congestion also. Related Data Home Medications Medication Instructions Recorded Confirmed omeprazole 20 mg capsule,delayed 20 mg PO DAILY GERD 12/02/19 05/03/23 release alendronate 35 mg tablet 35 mg PO DAILY . 04/06/23 05/03/23 Previous Rx's Medication Instructions Recorded fluticasone propionate 50 1 - 2 spray intranasal DAILY #16 04/06/23 mcg/actuation nasal grams spray,suspension (Flonase Allergy Relief) pseudoephedrine HCl 120 mg 120 mg PO Q12H PRN nasal 04/06/23 tablet,extended release (Sudafed congestion #20 tabs 12 Hour) doxepin 50 mg capsule 50 mg PO QHS . #30 caps 05/03/23 lamotrigine 100 mg tablet 100 mg PO BID #60 tabs 05/03/23 (Lamictal) vilazodone 40 mg tablet (Viibryd) 40 mg PO DAILY . #30 tabs 05/03/23 alprazolam 0.5 mg tablet (Xanax) 0.5 mg PO BID PRN anxiety #30 tabs 06/06/23 azithromycin 250 mg tablet 250 mg PO UD DOSE PK #6 tabs 06/09/23 (Zithromax) benzonatate 100 mg capsule 100 mg PO TIDP PRN Cough #30 caps 06/09/23 Allergies Allergy/AdvReac Type Severity Reaction Status Date / Time clavulanic acid Allergy Unknown Verified 06/09/23 14:22 [From Augmentin] morphine [MORPHINE] Allergy Unknown Verified 06/09/23 14:22 amoxicillin [From Augmentin] Allergy Verified 06/09/23 14:22 PFSH PFS Disclaimer: The information contained in this section may have been updated after the patient was seen, as this information can be updated by other users. 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
[2023-06-09 13:45] VITALS: BP 137/91; PULSE 80; RESP 18; TEMP 36.5; O2SAT 99; BMI 38.7
[2023-06-09 14:27] LABS: UTC Strep Screen (Rapid) Negative (Negative)
[2023-06-09 14:48] VITALS: BP 137/91; PULSE 80; RESP 18; TEMP 36.5; O2SAT 99
== END 2023-06-09 14:48 | disposition home or self-care (01) ==
PROVIDERS: Emergency Provider Nurse Practitioner Family; PCP Physician Assistant
DX: J20.9 Acute bronchitis, unspecified (principal); J01.90 Acute sinusitis, unspecified; F41.1 Generalized anxiety disorder; F33.8 Other recurrent depressive disorders
CPT/HCPCS: 87880; 96372; 99212; 99214; G0463

== ENCOUNTER 2023-06-14 16:22 | Emergency (ER) | payer BC, MEDICARE, SELFPAY ==
[2023-06-14 16:31] VITALS: BP 140/89; PULSE 86; RESP 19; TEMP 36.8; O2SAT 99; BMI 40.7
--- NOTE | 2023-06-14 16:36 | EXP.UTC ---
Discharge Plan Disposition Patient Disposition: Home, Self-Care Condition: Good Prescriptions Prescriptions: New cefdinir 300 mg capsule 300 mg PO BID Qty: 20 0RF fluticasone propionate [Flonase Allergy Relief] 50 mcg/actuation spray,suspension 1 spray intranasal DAILY PRN (Reason: allergy symptoms) Qty: 16 0RF Rx Instructions: administer into each nostril pseudoephedrine HCl [Sudafed 12 Hour] 120 mg tablet extended release 120 mg PO BID PRN (Reason: nasal congestion) Qty: 20 0RF No Action lamotrigine [Lamictal XR] 100 mg tablet extended release 24hr 100 mg PO DAILY Qty: 30 2RF doxepin 50 mg capsule 50 mg PO QHS Qty: 30 1RF Rx Instructions: take 1-2 at bedtime orally every day at bedtime; vilazodone [Viibryd] 40 mg tablet 40 mg PO DAILY Qty: 30 2RF Rx Instructions: must administer with a meal/food alprazolam [Xanax] 0.5 mg tablet 0.5 mg PO BID PRN (Reason: anxiety) Qty: 30 0RF omeprazole 20 MG capsule,delayed release(DR/EC) 20 mg PO DAILY azithromycin [Zithromax] 250 mg tablet 250 mg PO UD DOSE PK Qty: 6 0RF Rx Instructions: Take two (2) tablets today, then one (1) tablet days #2 thru #5 benzonatate [benzonatate] 100 mg capsule 100 mg PO TIDP PRN (Reason: Cough) Qty: 30 0RF alendronate 35 mg tablet 35 mg PO DAILY Patient Comments: TAKE ONE TABLET BY MOUTH ONCE A WEEK fluticasone propionate [Flonase Allergy Relief] 50 mcg/actuation spray,suspension 1 - 2 spray intranasal DAILY Qty: 16 0RF Rx Instructions: administer into each nostril Referrals Follow up/Referrals: Lexi Ennis PA [Primary Care Provider] - See instructions Clinical Impressions Clinical Impression: Otitis media Instructions Patient Instructions: DI for Otitis Media (Middle Ear Infection)-Child Discharge ED Provider: Zoe Vila [facility] [place] HPI General Stated complaint: BOTH EAR PAIN, CONGESTION, FEVER Mode of Arrival: Ambulatory Time Seen by Provider: 06/14/23 16:42 Description of Symptoms (Recalled from Triage Doc. by RN): PT STATES SHE WAS SEEN HERE ON 06/09/23 AND WAS TREATED FOR AN EAR AND SINUS INFECTION BUT STATES SYMPTOMS HAVE NOT GOTTEN ANY BETTER HEENT Symptoms (Recalled from RN notes): Yes Resp Symptoms (Recalled from RN notes): No Skin Symptoms (Recalled from RN notes): No MS Symptoms (Recalled from RN notes): No Functional Status (Recalled from RN notes): WNL History of Present Illness Provider Complaint: Bilateral ear pain, cough, congestion, fever X 1 week. Seen on 06/09. Has taken Z-Pack but does not feel better. Onset (ago): week(s) (1) Relieving factors: none Exacerbating factors: none Associated symptoms: denies other symptoms Treatments prior to arrival: other (Z-Pack) Related Data Home Medications Medication Instructions Recorded Confirmed omeprazole 20 mg capsule,delayed 20 mg PO DAILY GERD 12/02/19 06/12/23 release alendronate 35 mg tablet 35 mg PO DAILY . 04/06/23 06/12/23 Previous Rx's Medication Instructions Recorded fluticasone propionate 50 1 - 2 spray intranasal DAILY #16 04/06/23 mcg/actuation nasal grams spray,suspension (Flonase Allergy Relief) alprazolam 0.5 mg tablet (Xanax) 0.5 mg PO BID PRN anxiety #30 tabs 06/06/23 azithromycin 250 mg tablet 250 mg PO UD DOSE PK #6 tabs 06/09/23 (Zithromax) benzonatate 100 mg capsule 100 mg PO TIDP PRN Cough #30 caps 06/09/23 doxepin 50 mg capsule 50 mg PO QHS . #30 caps 06/12/23 lamotrigine 100 mg tablet,extended 100 mg PO DAILY #30 tabs 06/12/23 release 24 hr (Lamictal XR) vilazodone 40 mg tablet (Viibryd) 40 mg PO DAILY . #30 tabs 06/12/23 cefdinir 300 mg capsule 300 mg PO BID #20 caps 06/14/23 fluticasone propionate 50 1 spray intranasal DAILY PRN 06/14/23 mcg/actuation nasal allergy symptoms #16 grams spray,suspension (Flonase Allergy Relief) pseudoephedrine HCl 120 mg 120 mg PO BID PRN nasal congestion 06/14/23 tablet,exten
[2023-06-14 16:52] VITALS: BP 140/89; PULSE 86; RESP 19; TEMP 36.8; O2SAT 99
== END 2023-06-14 16:58 | disposition home or self-care (01) ==
PROVIDERS: Emergency Provider Physician Assistant; PCP Physician Assistant
DX: H66.93 Otitis media, unspecified, bilateral (principal); R50.9 Fever, unspecified; R09.81 Nasal congestion; R05.9 Cough, unspecified; F41.1 Generalized anxiety disorder; F33.9 Major depressive disorder, recurrent, unspecified
CPT/HCPCS: 96372; 99212; 99214; G0463; J1040

== ENCOUNTER 2023-08-28 11:09 | Emergency (ER) | payer BC, MEDICARE, SELFPAY ==
[2023-08-28 11:25] VITALS: BP 129/85; PULSE 106; RESP 20; TEMP 36.5; O2SAT 98; BMI 40.6
--- NOTE | 2023-08-28 11:43 | EXP.UTC ---
Discharge Plan Disposition Patient Disposition: Home, Self-Care Condition: Good Prescriptions Prescriptions: New ondansetron 4 mg tablet,disintegrating 4 mg PO Q8H PRN (Reason: nausea and vomiting) Qty: 10 0RF No Action lamotrigine [Lamictal XR] 200 mg tablet extended release 24hr 200 mg PO DAILY Qty: 30 2RF vilazodone [Viibryd] 40 mg tablet 40 mg PO DAILY Qty: 30 2RF Rx Instructions: must administer with a meal/food alprazolam [Xanax] 0.5 mg tablet 0.5 mg PO BID PRN (Reason: anxiety) Qty: 30 0RF doxepin 50 mg capsule 50 mg PO QHS Qty: 30 1RF Rx Instructions: take 1-2 at bedtime orally every day at bedtime; omeprazole 20 MG capsule,delayed release(DR/EC) 20 mg PO DAILY alendronate 35 mg tablet 35 mg PO DAILY Patient Comments: TAKE ONE TABLET BY MOUTH ONCE A WEEK fluticasone propionate [Flonase Allergy Relief] 50 mcg/actuation spray,suspension 1 - 2 spray intranasal DAILY Qty: 16 0RF Rx Instructions: administer into each nostril Referrals Follow up/Referrals: Lexi Ennis PA [Primary Care Provider] - See instructions Activity Restrictions/Add. Instructions Additional Instructions/Restrictions: *Monitor Temp, Over the counter Motrin or Tylenol as directed/as needed Tylenol every 4 hours and Motrin every 6 hours (as long as your family doctor has told you that you can take it) for fever or pain. and straight to ER if unable to lower temp less than 101.0 after medication given *Warm salt water gargles may help to soothe the throat *Throat Lozenges? *Warm fluids like tea with honey may help to soothe the throat? *Sleep elevated *Humidifier/Vaporizer Follow up IMMEDIATELY for new or worsening symptoms or no Noticeable improvement over the next 48-72 hours. 911 for difficulty breathing or swallowing You were tested for today for Upper Respiratory Panel with COVID19 your test result should be back in the next 24hours, you may check your results on the [facility] Portal if your COVID is positive you must Quarantine for 5 days Clinical Impressions Clinical Impression: Viral syndrome Instructions Patient Instructions: DI for Viral Syndrome Discharge ED Provider: Rose Dugan [facility] [place] General Stated complaint: chills, body aches, vomiting, cough, fever 100 Mode of Arrival: Ambulatory Source of Information: Patient Limitations: No Limitations Time Seen by Provider: 08/28/23 11:43 Description of Symptoms (Recalled from Triage Doc. by RN): PATIENT C/O CHILLS, BODY ACHES, NAUSEA, VOMITING X 1, DIARRHEA, AND FEVER THAT STARTED THIS MORNING. HEENT Symptoms (Recalled from RN notes): Yes Resp Symptoms (Recalled from RN notes): No Skin Symptoms (Recalled from RN notes): No MS Symptoms (Recalled from RN notes): No Functional Status (Recalled from RN notes): WNL History of Present Illness Provider Complaint: Patient states that she woke up in the middle of the night with body aches, chills and headache States that she thought she may have just had a headache took some medication and laid back down then was awoken a few hours later with n/v and fever States that her child had flu last week not sure if she may have it now also but she is still having body aches, chills, N/V and over all feeling like she may have flu Related Data Home Medications Medication Instructions Recorded Confirmed omeprazole 20 mg capsule,delayed 20 mg PO DAILY GERD 12/02/19 08/01/23 release alendronate 35 mg tablet 35 mg PO DAILY . 04/06/23 08/01/23 Previous Rx's Medication Instructions Recorded fluticasone propionate 50 1 - 2 spray intranasal DAILY #16 04/06/23 mcg/actuation nasal grams spray,suspension (Flonase Allergy Relief) alprazolam 0.5 mg tablet (Xanax) 0.5 mg PO BID PRN anxiety #30 tabs 08/01/23 doxepin 50 mg capsule 50 mg PO QHS . #30 caps 08/01/23 lamotrigine 200 mg tablet,extended 200 mg PO DAILY #30 tabs 08/01/23 release 24 hr (Lamictal XR) vilazodone 40 mg tablet (Viibryd) 40 mg PO DAILY . #30 tabs 08/01/23 ondansetron 4 mg disintegrating 4 mg PO Q8H PRN nausea and 08/28/23 tablet vomiting #10 tabs Allergies Allergy/AdvReac Type Severity Reaction Status Date / Time clavulanic acid Allergy Unknown Verified 08/01/23 10:15 [From Augmentin] morphine [MORPHINE] Allergy Unknown Verified 08/01/23 10:15 amoxicillin [From Augmentin] Allergy Verified 08/01/23 10:15 Worker's Comp Is this a Worker's Comp case?: No [facility] Disclaimer: The information contained in this section may have been updated after the patient was seen, as this information can be updated by other users. Medical History (Updated 08/28/23 @ 12:02 by Rose Dugan APRN) Generalized anxiety disorder Insomnia Recurrent major depression resistant to treatment Family History , MAGGIE) Diabetes Father Hyperlipidemia Mother Father FHx: mental illness Mother Grandmother Thyroid disorder Mother Social History Smoking Status: Never smoker second hand exposure: No alcohol intake: never counseling given: No substance use type: denies use counseling given: No current occupational status: disabled and other details: she has been on disability for 8 years Travel in the last 8 weeks: None adopted: No caregiver/support person: No foster care: No household members: family housing: house lives independently: Yes marital status: number of children: 2 number of grandchildren: 0 education level: college service: No penitentiary: No current occupation: she is on disability Hx Recent Travel: No sexually active: Yes are you practicing safe sex: Yes caffeine: Yes physical activity: none melissa/synagogue: Islam special melissa needs: No working smoke detector in home: Yes fire extinguisher in home: Yes carbon monox detector in home: Yes firearms in home: Yes firearms unloaded and locked: Yes do you feel safe at home: Yes victim of physical abuse: No victim of emotional abuse: No victim of sexual abuse: No ROS Obtained: Yes All systems reviewed & no additional complaints except as documented and Yes Systems reviewed as appropriate & no additional complaints except as documented Constitutional Constitutional: Reports system reviewed and no additional complaints, except as documented, Reports as per HPI, Reports body ache, Reports chills, Reports fever(s) and Reports headache(s) ENT Ears, Nose, Mouth, and Throat: Reports system reviewed and no additional complaints, except as documented, Reports as per HPI, Reports headache(s) and Reports nasal congestion Cardiovascular Cardiovascular: Reports system reviewed and no additional complaints, except as documented and Reports as per HPI Respiratory Respiratory: Reports system reviewed and no additional complaints, except as documented and Reports as per HPI Gastrointestinal Gastrointestingal: Reports system reviewed and no additional complaints, except as documented, as per HPI, nausea and vomiting; Denies abdominal pain Neurologic Neurologic: Reports headache(s) Physical Exam General General appearance: alert and in no apparent distress ENT ENT exam: Present mucous membranes moist Respiratory Respiratory exam: Present normal lung sounds bilaterally; Absent respiratory distress or wheezes Cardiovascular Cardiovascular exam: Present regular rate, normal rhythm and tachycardia Abdominal Exam Abdominal exam: Present soft and normal bowel sounds; Absent distention or tenderness Neurological Exam Neurological exam: Present alert, oriented X3 and normal gait Medical Decision Making Cristopher Inquiry Pt receiving controlled substance: No Cristopher was queried for this patient: No Vital Signs: 08/28/23 11:25 Temperature 97.7 F Temperature Source Oral Pulse Rate [Left Brachial] 106 H Respiratory Rate 20 Blood Pressure [Left Arm] 129/85 Blood Pressure Mean [Left Arm] 99 Blood Pressure Source [Left Arm] Automatic Cuff Blood Pressure Position [Left Arm] Sitting 02 Sat by Pulse Oximetry 98 Oxygen Delivery Method Room Air Lab Data Lab results reviewed: Yes I reviewed the patient's lab results.
[2023-08-28 11:51] LABS: UTC Influenza A Antigen Negative (Negative); UTC Influenza B Antigen Negative (Negative)
[2023-08-28 12:06] VITALS: BP 129/85; PULSE 106; RESP 20; TEMP 36.5; O2SAT 98
[2023-08-28 12:11] LABS: Adenovirus,PCR Not Detected (NotDetected); Coronavirus 229E Not Detected (NotDetected); Coronavirus NL63 Not Detected (NotDetected); Coronavirus OC43 Not Detected (NotDetected); Coronovirus HKU1,PCR Not Detected (NotDetected); Human Metapneumovirus Not Detected (NotDetected); Influenza A, PCR Not Detected (NotDetected); Influenza AH1, 2009 Not Detected (NotDetected); Influenza AH1, PCR Not Detected (NotDetected); Influenza AH3,PCR Not Detected (NotDetected); Influenza B, PCR Not Detected (NotDetected); Parainfluenza 1, PCR Not Detected (NotDetected); Parainfluenza 2, PCR Not Detected (NotDetected); Parainfluenza 3, PCR Not Detected (NotDetected); Parainfluenza 4, PCR Not Detected (NotDetected); Respiratory Syncytial Virus Not Detected (NotDetected); Rhinovirus/Enterovirus Not Detected (NotDetected)
[2023-08-28 15:30] LABS: Coronavirus 19, PCR Detected (NotDetected)
== END 2023-08-28 12:07 | disposition home or self-care (01) ==
PROVIDERS: Emergency Provider Nurse Practitioner; PCP Physician Assistant
DX: U07.1 COVID-19; R11.2 Nausea with vomiting, unspecified; R50.9 Fever, unspecified; R51.9 Headache, unspecified; M79.18 Myalgia, other site
CPT/HCPCS: 87632; 87635; 87804; 99212; 99214; G0463

== ENCOUNTER 2023-11-06 11:07 | Outpatient (CLI) | payer BC, MEDICARE, SELFPAY ==
--- NOTE | 2023-11-06 11:10 | XR_ITS ---
FINAL REPORT CLINICAL HISTORY: mid back pain fall 2 years ago COMPARISON: None FINDINGS: THORACIC SPINE Three views of the thoracic spine were obtained. There is no fracture present. There is no malalignment. There is mild degenerative change with osteophytes. There is mild leftward curvature of the thoracic spine. IMPRESSION: Mild degenerative change without acute process. LUMBOSACRAL SPINE 5 views of the lumbosacral spine were obtained. There is no fracture present. There is no malalignment. There is mild degenerative change with osteophytes. IMPRESSION: Mild degenerative change without acute process. Reviewed, Interpreted and Dictated by Souleymane Sánchez III, MD Transcribed by Mary Cervantes Authenticated and [facility]
== END 2023-11-06 23:59 ==
LOC: RAD 11:08
PROVIDERS: PCP Physician Assistant; Visit Provider Physician Assistant
DX: M54.50 Low back pain, unspecified (principal); M54.6 Pain in thoracic spine
CPT/HCPCS: 72084